=== PATIENT | female | born 1955 | race Caucasian/White ===

== ENCOUNTER 2016-05-09 10:30 | Outpatient (RCR) | payer MEDICAID ==
[~2016-05-09 10:30] MED LIST: ALBUTEROL SULFAT3 M3 IH; ALBUTEROL0.83 MG/ML IH; ATIVAN; ATIVAN 0.50.5 MG/TAB PO; BUSPAR DIVIDOSE15 MG PO; CITRACAL + D 251 TAB PO; COMBIRESP IH; COMBIVENT INH14.7 GM IH; DILANTIN; DILANTIN 100MG100 MG PO; GARLIC OIL NATUR1 MG PO; KEPPRA XR500 MG PO; KEPPRA1000 MG PO; MAREPA1200 MG PO; NAPROSYN375 MG PO; NAPROSYN500 MG PO; NAPROXEN EC500 MG PO; NEURONTIN100 MG/CAP PO; NEURONTIN300 MG/CAP PO; NORCO 325 MG-51 TAB PO; PREDNISONE20 MG PO; PRIL40 PO; PRILOSEC 20MG20 MG PO; PROTONIX 40MG T40 MG PO; RT SPIRIVA18 MCG IH; SPIRIVA INH; SYNTHROID0.075 MG/T PO; SYNTHROID0.088 MG/T PO; SYNTHROID0.125 MG/T PO; SYNTHROID0.175 MG PO; ZITHROMAX Z PA250 MG PO; [UNRECOGNIZED DRUG - OTHER]; [UNRECOGNIZED DRUG - OTHER]
== END 2016-06-24 | disposition home or self-care (01) ==
LOC: WSST
DX: R13.12 Dysphagia, oropharyngeal phase (principal)

== ENCOUNTER 2016-06-19 19:44 | Emergency (ER) | payer MEDICAID ==
[~2016-06-19] VITALS: Ht 172.7 cm; Wt 52.3 kg
[2016-06-19 19:47] VITALS: BP 131/75; PULSE 66; TEMP 97.4
== END 2016-06-19 20:46 | disposition home or self-care (01) ==
LOC: COL.ER 19:44
DX: Z43.1 Encounter for attention to gastrostomy (principal)

== ENCOUNTER 2016-06-27 05:53 | Emergency (ER) | payer MEDICAID ==
[~2016-06-27] VITALS: Ht 172.7 cm; Wt 52.3 kg
[2016-06-27 05:57] VITALS: BP 101/87; PULSE 90; TEMP 98
[2016-06-27 07:04] LABS: BASO % 0.4 % (0.0-2.0); EOS # 0.1 (0.0-0.7); EOS % 2.6 % (0-4.0); GRAN # 2.7 (1.4-6.5); GRAN % 50.9 % (42.2-75.2); HEMATOCRIT 39.9 % (37.0-47.0); HEMOGLOBIN 12.9 g/dl (12.5-16.0); LYMPH # 1.8 (1.2-3.4); LYMPH % 33.9 % (20.0-51.0); MEAN CELL VOLUME 92 fl (80.0-100.0); MEAN CORPUSCULAR HEMOGLOBIN 30 pg (27.0-31.0); MEAN CORPUSCULAR HGB CONC 32 g/dl (33.0-37.0); MEAN PLATELET VOLUME 12.8 fl (7.4-10.4); MONO # 0.6 (0.1-0.6); MONO % 11.8 % (1.7-9.3); PLATELET COUNT 187 K/mm3 (130-400); RED BLOOD COUNT 4.34 M/mm3 (4.10-5.30); REDCELL DISTRIBUTION WIDTH-CV 13.5 % (11.5-14.5); WHITE BLOOD COUNT 5.3 K/mm3 (4.8-10.8)
[2016-06-27 07:16] LABS: ADJUSTED CALCIUM 9.6 mg/dL (8.4-10.2); ALBUMIN 4.5 gm/dL (3.5-5.0); BILIRUBIN,TOTAL 0.7 mg/dL (0.0-1.0); CREATININE, serum 0.71 mg/dL (0.52-1.25); POTASSIUM 3.6 mmol/L (3.4-5.0); TOTAL PROTEIN 8.7 gm/dL (6.4-8.2)
== END 2016-06-27 08:35 | disposition home or self-care (01) ==
LOC: COL.ER 05:53
PROVIDERS: Family Medicine
DX: R10.12 Left upper quadrant pain (principal); Z43.1 Encounter for attention to gastrostomy; R93.2 Abnormal findings on diagnostic imaging of liver and biliary tract
CPT/HCPCS: Q9967

== ENCOUNTER → 2016-08-26 | Outpatient (CLI) | payer MEDICAID | LOC: COL.PUL 09:42 | DX: R06.02 Shortness of breath (principal); Z87.891 Personal history of nicotine dependence ==

== ENCOUNTER 2016-09-10 17:35 | Emergency (ER) | payer MEDICAID ==
[~2016-09-10] VITALS: Ht 172.7 cm; Wt 58.4 kg
[2016-09-10 17:38] VITALS: BP 100/55; PULSE 68; TEMP 98.5
== END 2016-09-10 18:25 | disposition home or self-care (01) ==
LOC: COL.ER 17:35
DX: K94.21 Gastrostomy hemorrhage (principal); G40.909 Epilepsy, unspecified, not intractable, without status epilepticus; J44.9 Chronic obstructive pulmonary disease, unspecified

== ENCOUNTER → 2017-01-10 | Outpatient (CLI) | payer MEDICAID ==
[~2017-01-10] MED LIST changes: +CYMBALTA 30MG30 MG PO; +KEPPRA 500MG500 MG PO; +LEVAQUIN 5500 MG/TA1 PO; +LEVOXYL0.125 MG PO; +PREDNISONE10 MG PO; +STIOLTO RESPIMAT4 GM IH
== END ==
LOC: COL.RAD 12:09
DX: D37.6 Neoplasm of uncertain behavior of liver, gallbladder and bile ducts (principal); D18.03 Hemangioma of intra-abdominal structures; R16.0 Hepatomegaly, not elsewhere classified
CPT/HCPCS: Q9967

== ENCOUNTER 2017-04-04 20:33 | Emergency (ER) | payer MEDICAID ==
[~2017-04-04] VITALS: Ht 172.7 cm; Wt 54.5 kg
[~2017-04-04 20:33] MED LIST changes: -CYMBALTA 30MG30 MG PO; -KEPPRA 500MG500 MG PO; -LEVAQUIN 5500 MG/TA1 PO; -LEVOXYL0.125 MG PO; -PREDNISONE10 MG PO; -STIOLTO RESPIMAT4 GM IH
[2017-04-04 20:35] VITALS: BP 110/65
[2017-04-04] MEDS ORDERED: CYMBALTA 30MG30 MG PO (21:21)
[2017-04-04 21:35] VITALS: PULSE 66; TEMP 97.8
== END 2017-04-04 21:33 | disposition home or self-care (01) ==
LOC: COL.ER 20:33
DX: G62.9 Polyneuropathy, unspecified (principal); G40.909 Epilepsy, unspecified, not intractable, without status epilepticus; Z93.1 Gastrostomy status

== ENCOUNTER 2017-08-14 20:21 | Emergency (ER) | payer MEDICAID ==
[~2017-08-14] VITALS: Ht 172.7 cm; Wt 54.5 kg
[~2017-08-14 20:21] MED LIST changes: +CYMBALTA 30MG30 MG PO
[2017-08-14 20:25] VITALS: BP 110/60; TEMP 97.8
[2017-08-14 21:44] VITALS: PULSE 58
== END 2017-08-14 21:46 | disposition home or self-care (01) ==
LOC: COL.ER 20:21
DX: B35.1 Tinea unguium (principal); J45.909 Unspecified asthma, uncomplicated; F41.9 Anxiety disorder, unspecified; E03.9 Hypothyroidism, unspecified; F17.210 Nicotine dependence, cigarettes, uncomplicated

== ENCOUNTER → 2018-01-22 | Outpatient (CLI) | payer MEDICAID ==
[~2018-01-22] MED LIST changes: +KEPPRA 500MG500 MG PO; +LEVOXYL0.125 MG PO; +STIOLTO RESPIMAT4 GM IH
== END ==
LOC: COL.RAD 12:18
DX: H90.41 Sensorineural hearing loss, unilateral, right ear, with unrestricted hearing on the contralateral side (principal); I63.411 Cerebral infarction due to embolism of right middle cerebral artery
CPT/HCPCS: A9585

== ENCOUNTER 2018-01-27 10:38 | Emergency (ER) | payer MEDICAID ==
[~2018-01-27] VITALS: Ht 172.7 cm; Wt 52.7 kg
[~2018-01-27 10:38] MED LIST changes: -LEVAQUIN 5500 MG/TA1 PO; -PREDNISONE10 MG PO
[2018-01-27] MEDS ORDERED: LEVAQUIN 5500 MG/TA1 PO (11:20)
[2018-01-27] MEDS ORDERED: PREDNISONE10 MG PO (11:20)
[2018-01-27 11:25] VITALS: BP 133/80; PULSE 58; TEMP 98.7
== END 2018-01-27 11:26 | disposition home or self-care (01) ==
LOC: COL.ER 10:38
DX: K94.23 Gastrostomy malfunction (principal); K21.9 Gastro-esophageal reflux disease without esophagitis; J44.9 Chronic obstructive pulmonary disease, unspecified; G40.909 Epilepsy, unspecified, not intractable, without status epilepticus; Z79.52 Long term (current) use of systemic steroids

== ENCOUNTER → 2018-01-27 | Outpatient (CLI) | payer MEDICAID ==
[~2018-01-27] MED LIST changes: +LEVAQUIN 5500 MG/TA1 PO; +PREDNISONE10 MG PO
== END ==
LOC: MC.RAD 13:36
DX: Z12.31 Encounter for screening mammogram for malignant neoplasm of breast (principal)

== ENCOUNTER 2018-06-27 09:32 | Emergency (ER) | payer MEDICAID ==
[~2018-06-27] VITALS: Ht 172.7 cm; Wt 52.7 kg
[~2018-06-27 09:32] MED LIST changes: +LEVAQUIN 5500 MG/TA1 PO; +PREDNISONE10 MG PO
[2018-06-27 09:46] VITALS: TEMP 98.6
[2018-06-27 11:10] VITALS: BP 96/70; PULSE 93
== END 2018-06-27 11:10 | disposition home or self-care (01) ==
LOC: COL.ER 09:32
DX: K94.23 Gastrostomy malfunction (principal); F17.210 Nicotine dependence, cigarettes, uncomplicated; J44.9 Chronic obstructive pulmonary disease, unspecified

== ENCOUNTER → 2019-03-09 | Outpatient (CLI) | payer MEDICAID | LOC: COL.RAD 13:34 | DX: M48.02 Spinal stenosis, cervical region (principal); M47.812 Spondylosis without myelopathy or radiculopathy, cervical region; G43.009 Migraine without aura, not intractable, without status migrainosus; R06.02 Shortness of breath ==

== ENCOUNTER → 2020-08-02 | Outpatient (CLI) | payer MEDICAID | LOC: COL.RAD 12:00 | DX: G40.309 Generalized idiopathic epilepsy and epileptic syndromes, not intractable, without status epilepticus (principal); R25.1 Tremor, unspecified | CPT/HCPCS: A9585 ==

== ENCOUNTER 2021-09-07 11:06 | Day surgery (SDC) | payer MEDICAID ==
[~2021-09-07] VITALS: Ht 172.7 cm; Wt 48.9 kg
[2021-09-07 11:39] VITALS: BP 116/83; PULSE 72; TEMP 98.8
[2021-09-07 13:35] VITALS: BP 127/78; PULSE 67; TEMP 98.8
[2021-09-07 13:45] VITALS: BP 133/74; PULSE 61
[2021-09-07 14:00] VITALS: BP 131/70; PULSE 56
--- NOTE | 2021-09-07 14:20 | NUR ---
Pt returned to recliner in bay. VSS-see flowsheet. Tolerated oral intake. DC teaching completed with pt and social research assistant Ms Webb. Pt taken via wheelchair to private vehicle for dc home with Ms Webb driving.
== END 2021-09-07 14:20 | disposition home or self-care (01) ==
LOC: SDCO 11:06
DX: K22.4 Dyskinesia of esophagus (principal); R13.10 Dysphagia, unspecified; F17.210 Nicotine dependence, cigarettes, uncomplicated
CPT/HCPCS: J2704; J7120